=== PATIENT | female | born 1990 | race Caucasian/White ===

== ENCOUNTER 2025-08-08 09:53 | Emergency (ER) | payer OTHER ==
[~2025-08-08] VITALS: Ht 152.4 cm; Wt 68.0 kg
[2025-08-08 09:58] VITALS: O2SAT 100
[2025-08-08 10:31] LABS: BASOPHILS % 0.1 % (0.0-2.0); EOSINOPHILS % 0.2 % (0.0-5.0); HEMATOCRIT. 39.9 % (36.0-48.0); HEMOGLOBIN. 13.3 g/dL (12.0-16.0); LYMPHOCYTES % 38.6 % (20.0-50.0); MEAN PLATELET VOLUME 9.6 fl (7.4-10.4); MONOCYTES % 5.3 % (2.0-8.0); NEUTROPHILS % 55.8 % (40.0-76.0); PLATELET 200 x1000/uL (130-400); RED BLOOD CELL COUNT 5.17 mill/uL (4.2-5.4); RED CELL DISTRIBUTION WIDTH 14.4 % (11.6-14.6)
[2025-08-08 10:50] LABS: CREATININE 0.8 mg/dL (0.6-1.0); PROTEIN TOTAL 7.9 g/dL (6.0-8.3); UREA NITROGEN BLOOD 9 mg/dL (9-23)
[2025-08-08 10:51] LABS: CLARITY URINE CLEAR (CLEAR); COLOR URINE YELLOW (YELLOW); GLUCOSE URINE NEGATIVE (NEGATIVE); KETONES URINE NEGATIVE (NEGATIVE); LEUKOCYTE ESTERASE URINE 2+ (NEGATIVE); NITRITE URINE NEGATIVE (NEGATIVE); OCCULT BLOOD URINE 2+ (NEGATIVE); PH URINE 5.5 (4.5-8.0); PROTEIN URINE NEGATIVE (NEGATIVE); SPECIFIC GRAVITY URINE 1.014 (1.005-1.030); UROBILINOGEN URINE 0.2 E.U./dL (0.2-1.0)
[2025-08-08 10:51] LABS: ASPARTATE AMINOTRANSFERASE 28 IU/L (<34)
[2025-08-08 10:52] LABS: BILIRUBIN DIRECT 0.3 mg/dL (<=3.0); BILIRUBIN TOTAL 0.9 mg/dL (0.1-1.0)
[2025-08-08 11:21] LABS: B-HCG QUANTITATIVE 24272 mIU/mL (<6)
[2025-08-08 11:22] LABS: SQUAMOUS EPITHELIAL CELL URINE 1+ /lpf (RARE/1+)
[2025-08-08 11:23] LABS: BACTERIA URINE 1+
[2025-08-08 12:10] VITALS: BP 104/63; PULSE 61; RESP 13; TEMP 36.7; O2SAT 100
[2025-08-08] MEDS ORDERED: CEFP100T8 MT (12:13)
== END 2025-08-08 12:37 | disposition home or self-care (01) ==
LOC: ER 09:53
DX: O23.41 Unspecified infection of urinary tract in pregnancy, first trimester (principal); O20.9 Hemorrhage in early pregnancy, unspecified; F31.9 Bipolar disorder, unspecified; J45.909 Unspecified asthma, uncomplicated; Z3A.08 8 weeks gestation of pregnancy; Z90.89 Acquired absence of other organs; Z79.899 Other long term (current) drug therapy
CPT/HCPCS: 36415; 76801; 80048; 80076; 81003; 84702; 85025; 99284